=== PATIENT | male | born 1980 | race Caucasian/White ===

== ENCOUNTER 2020-11-09 14:01 | Inpatient (IN) ==
[2020-11-09] MEDS ORDERED: Acetaminophen 325 MG TABLET PO PRN (17:05)
[2020-11-09] MEDS ORDERED: MOM Conc 10 ML UD.LIQ PO PRN (17:05)
[2020-11-09] MEDS ORDERED: traZODone 50 MG TABLET PO PRN (17:05)
[2020-11-09] MEDS ORDERED: Mag Hydrox/Al Hydrox/Simeth 30 ML UDC PO PRN (17:05)
[2020-11-09] MEDS ORDERED: *HR* LORazepam 2 MG/ML VIAL IM PRN (17:05)
[2020-11-09] MEDS ORDERED: *HR* LORazepam 1 MG TABLET PO PRN (17:05)
[2020-11-09] MEDS ORDERED: Haloperidol Lactate 5 MG/ML VIAL IM PRN (17:05)
[2020-11-09] MEDS: haloperidoL 5 MG TABLET PO PRN (20:19)
[2020-11-09] MEDS ORDERED: Perphenazine 8 MG TABLET PO ONE (21:00)
[2020-11-10] MEDS: hydrOXYzine pamoate 25 MG CAPSULE PO PRN ×2 (06:48→20:12)
[2020-11-10] MEDS ORDERED: QUEtiapine Fumarate 25 MG TABLET PO PRN (09:56)
[2020-11-10] MEDS: haloperidoL 5 MG TABLET PO PRN (11:12)
[2020-11-10] MEDS: Melatonin 3 MG TABLET PO SCH (20:10)
[2020-11-11] MEDS: Melatonin 3 MG TABLET PO SCH (20:26)
[2020-11-12] MEDS ORDERED: Lurasidone 20 MG TABLET PO SCH (09:00)
[2020-11-12 10:27] VITALS: BP 112/77
== END 2020-11-12 13:20 | disposition home or self-care (01) | DRG 750 ==
LOC: EMEROOARM 14:01 → 1ANU 17:02
PROVIDERS: ADMIT Psychiatry & Neurology Psychiatry; ATTEND Psychiatry & Neurology Psychiatry

== ENCOUNTER 2021-02-10 00:26 | Inpatient (IN) ==
[2021-02-10 00:50] LABS: Basophils # 0.1 K/mcL (0.0-0.2); Basophils % 0.8 %; Eosinophils # 0.3 K/mcL (0.0-0.6); Eosinophils % 3.3 %; Hematocrit 42.8 % (37.5-50.1); Hemoglobin 14.3 g/dL (12.9-16.9); Immature Granulocytes % 0.3 % (0-4); Lymphocytes # 2.2 K/mcL (0.6-4.6); Lymphocytes % 25.6 %; Mean Corpuscular HGB Conc 33.4 g/dL (31.6-35.5); Mean Corpuscular Hemoglobin 30.5 pg (28.0-33.3); Mean Corpuscular Volume 91.3 fL (83.0-100.0); Mean Platelet Volume 8.8 fL (9.4-12.4); Monocytes # 0.9 K/mcL (0.0-1.3); Monocytes % 10.4 %; Neutrophils # 5.1 K/mcL (1.6-8.9); Platelet Count 465 K/mcL (140-400); Red Blood Count 4.69 M/mcL (4.19-5.50); Segmented Neutrophils % 59.6 %; White Blood Count 8.6 K/mcL (4.3-11.1)
[2021-02-10 01:06] LABS: Bilirubin,Urine Negative (Negative); Blood,Urine Negative (Negative); Clarity,Urine Clear (Clear); Color,Urine Yellow (Yellow); Glucose,Urine (UA) Normal (Normal); Ketones,Urine 20 mg/dL (Negative); Leukocyte Esterase,Urine Negative (Negative); Mucus,Urine Many per lpf (None-Few); Nitrite,Urine Negative (Negative); Protein,Urine 30 mg/dL (Neg-Trace); RBC,Urine 0-3 per hpf (0-3); Specific Gravity,Urine > 1.030 (1.010-1.025); Urobilinogen,Urine Normal (Normal); WBC,Urine 0-3 per hpf (0-3)
[2021-02-10 01:07] LABS: Acetaminophen < 10 mcg/mL (10-20); BUN/Creatinine Ratio 19 (6-26); Blood Urea Nitrogen 15 mg/dL (6-20); Carbon Dioxide 25 mEq/L (23-29); Chloride 104 mEq/L (98-107); Ethanol < 10 mg/dL (Less than 10); Glucose 88 mg/dL (70-105); Osmolality,Calculated 284 (280-300); Potassium 3.6 mEq/L (3.5-5.1); Salicylate < 2.5 mg/dL (15.0-30.0); Sodium 137 mEq/L (136-145); eGFR For African Americans > 60 (> 60); eGFR For Non-African Americans > 60 (> 60)
[2021-02-10 01:46] LABS: Amphetamine Screen,Urine Negative ng/mL (Cutoff=1000); Barbiturate Screen,Urine Negative ng/mL (Cutoff=200); Benzodiazepines Screen,Urine Negative ng/mL (Cutoff=200); Cannabinoid Screen,Urine Positive ng/mL (Cutoff = 50); Cocaine Screen,Urine Negative ng/mL (Cutoff= 300); Opiate Screen,Urine Negative ng/mL (Cutoff=300); Phencyclidine Screen,Urine Negative ng/mL (Cutoff=25)
[2021-02-10] MEDS ORDERED: Ondansetron 4 MG/2 ML VIAL IVP PRN (04:23)
[2021-02-10] MEDS ORDERED: Naloxone 0.4 MG/ML INJ IVP PRN (04:23)
[2021-02-10] MEDS ORDERED: Acetaminophen 325 MG TABLET PO PRN (04:23)
[2021-02-10] MEDS ORDERED: hydrOXYzine pamoate 25 MG CAPSULE PO PRN (10:07)
[2021-02-10] MEDS ORDERED: Haloperidol Lactate 5 MG/ML VIAL IM PRN (10:07)
[2021-02-10] MEDS ORDERED: *HR* LORazepam 2 MG/ML VIAL IM PRN (10:07)
[2021-02-10] MEDS ORDERED: *HR* LORazepam 1 MG TABLET PO PRN (10:07)
[2021-02-10] MEDS ORDERED: haloperidoL 5 MG TABLET PO PRN (10:07)
[2021-02-10] MEDS: risperiDONE 1 MG TABLET PO SCH (20:00)
[2021-02-10] MEDS: Melatonin 3 MG TABLET PO SCH (20:00)
[2021-02-11 06:49] LABS: Basophils # 0.1 K/mcL (0.0-0.2); Basophils % 1.3 %; Eosinophils # 0.4 K/mcL (0.0-0.6); Eosinophils % 5.5 %; Hematocrit 43.2 % (37.5-50.1); Hemoglobin 14.2 g/dL (12.9-16.9); Immature Granulocytes % 0.5 % (0-4); Lymphocytes # 1.9 K/mcL (0.6-4.6); Lymphocytes % 29.4 %; Mean Corpuscular HGB Conc 32.9 g/dL (31.6-35.5); Mean Corpuscular Hemoglobin 29.8 pg (28.0-33.3); Mean Corpuscular Volume 90.6 fL (83.0-100.0); Mean Platelet Volume 9.2 fL (9.4-12.4); Monocytes # 0.7 K/mcL (0.0-1.3); Monocytes % 11.6 %; Neutrophils # 3.3 K/mcL (1.6-8.9); Platelet Count 466 K/mcL (140-400); Red Blood Count 4.77 M/mcL (4.19-5.50); Red Cell Distribution Width 12.8 % (11.5-14.5); Segmented Neutrophils % 51.7 %; White Blood Count 6.4 K/mcL (4.3-11.1)
[2021-02-11 07:06] LABS: BUN/Creatinine Ratio 20 (6-26); Blood Urea Nitrogen 17 mg/dL (6-20); Calcium 9.4 mg/dL (8.6-10.3); Carbon Dioxide 25 mEq/L (23-29); Chloride 107 mEq/L (98-107); Glucose 101 mg/dL (70-105); Magnesium 2.2 mg/dL (1.6-2.6); Osmolality,Calculated 290 (280-300); Potassium 3.8 mEq/L (3.5-5.1); Sodium 139 mEq/L (136-145); eGFR For African Americans > 60 (> 60); eGFR For Non-African Americans > 60 (> 60)
[2021-02-11] MEDS: risperiDONE 1 MG TABLET PO SCH ×2 (09:22→17:30)
[2021-02-11] MEDS: Melatonin 3 MG TABLET PO SCH (20:29)
[2021-02-12] MEDS: risperiDONE 1 MG TABLET PO SCH ×2 (09:18→16:47)
[2021-02-12] MEDS: Loratadine 10 MG TABLET PO SCH (13:52)
[2021-02-12] MEDS: Melatonin 3 MG TABLET PO SCH (21:45)
[2021-02-13] MEDS: Loratadine 10 MG TABLET PO SCH (08:07)
[2021-02-13] MEDS: risperiDONE 1 MG TABLET PO SCH ×2 (08:07→16:38)
[2021-02-13] MEDS ORDERED: PALIPERIDONE PALMITATE 234 MG/1.5 ML SYRINGE IM SCH (13:30)
[2021-02-13] MEDS: Melatonin 3 MG TABLET PO SCH (22:01)
[2021-02-14] MEDS: risperiDONE 1 MG TABLET PO SCH ×2 (08:28→17:51)
[2021-02-14] MEDS: Loratadine 10 MG TABLET PO SCH (08:28)
[2021-02-14] MEDS: Melatonin 3 MG TABLET PO SCH (21:18)
[2021-02-15 07:53] VITALS: BP 123/78
[2021-02-15] MEDS: Loratadine 10 MG TABLET PO SCH (08:01)
[2021-02-15] MEDS: risperiDONE 1 MG TABLET PO SCH (08:01)
== END 2021-02-15 13:09 | disposition home or self-care (01) | DRG 750 ==
LOC: 3BNU 00:26 → EMEROOARM 00:26 → SUATTDRO 03:36 → 3BNU 04:01
PROVIDERS: ADMIT Internal Medicine; ATTEND Internal Medicine